=== PATIENT | male | born 1985 ===

== ENCOUNTER 2019-08-27 11:19 | Emergency (ER) | payer BC ==
[2019-08-27 12:27] VITALS: BP 135/84
[2019-08-27] MEDS ORDERED: Ibuprofen TAB* 600 MG PO ONE (12:30)
[2019-08-27 12:49] LABS: Influenza A Molecular NEGATIVE (Negative); Influenza B Molecular NEGATIVE (Negative)
--- NOTE | 2019-08-27 13:11 | UC ---
FLU HPI - HPI Summary HPI Summary: 34-year-old male who had a sudden onset of fever, chills, body aches and cough on Friday of this week. He has also been traveling this week and states that his backache is more from traveling he thinks however when he coughs he does have some mid back pain. He states in the beginning he has had a productive cough the first day of illness however he has not tried to cough because it hurts when he coughs. - History of Current Complaint Chief Complaint: UCRespiratory Stated Complaint: COUGH Time Seen by Provider: 08/27/19 13:09 Hx Obtained From: Patient Onset/Duration: Sudden Onset Severity Currently: Moderate Severity Initially: Moderate Pain Intensity: 9 Associated Signs & Symptoms: Positive: Fever, Cough, Nasal Congestion - Allergy/Home Medications Allergies/Adverse Reactions: Allergies Allergy/AdvReac Type Severity Reaction Status Date / Time latex Allergy Rash Verified 08/27/19 12:28 Home Medications: Home Medications Cbd Oil 1 drop PO ONCE PRN 08/27/19 [History Confirmed 08/27/19] Dm/PE/Acetaminophen/Doxylamine [Vicks Dayquil-Nyquil Cold-Flu] 1 tab PO ONCE PRN 08/27/19 [History Confirmed 08/27/19] Ibuprofen [Advil] 400 mg PO ONCE PRN 08/27/19 [History Confirmed 08/27/19] PMH/Surg Hx/FS Hx/Imm Hx Previously Healthy: Yes - Surgical History Surgical History: Yes Surgery Procedure, Year, and Place: testicular torsion. cyst removal. hernia - Family History Known Family History: Positive: Non-Contributory - Social History Alcohol Use: Weekly Substance Use Type: Marijuana Smoking Status (MU): Light Every Day Tobacco Smoker Amount Used/How Often: occasionally 3 times a week Household Exposure Type: Cigarettes Review of Systems All Other Systems Reviewed And Are Negative: Yes Constitutional: Positive: Fever, Chills ENT: Positive: Nasal Discharge Respiratory: Positive: Cough - In the first day of the illness he states he had a productive cough but has now continued however he has not wanted to cough because he has midback pain when he coughs. Is Patient Immunocompromised?: No Physical Exam Appearance: Well-Appearing, No Pain Distress, Well-Nourished Vital Signs: Initial Vital Signs Temp 101.5 F 08/27/19 12:22 Pulse 97 08/27/19 12:22 Resp 18 08/27/19 12:22 BP 135/84 08/27/19 12:22 Pulse Ox 100 08/27/19 12:22 Vital Signs Reviewed: Yes Eyes: Positive: Conjunctiva Clear ENT: Positive: Pharynx normal, TMs normal, Uvula midline Neck: Positive: Supple, Nontender, No Lymphadenopathy Respiratory: Positive: Lungs clear, Normal breath sounds, No respiratory distress, No accessory muscle use Cardiovascular: Positive: RRR, No Murmur, Pulses Normal, Brisk Capillary Refill Musculoskeletal Exam: Normal Neurological Exam: Normal Psychological Exam: Normal Skin Exam: Normal Flu Course/Dx - Course Course Of Treatment: Rapid influenza test: Negative Chest x-ray: Patient first consented to a chest x-ray after he found out the zhang however then he came out of the room and stated he change his mind and does not want a chest x-ray. He was given ibuprofen here. He has been comfortable here. I believe this is a viral illness however I did urge the patient to get a chest x-ray he continued to refuse. He would prefer to go home and rest, take fluids, take Tylenol every 4 hours and Motrin every 8 hours and follow-up as needed if any worsening symptoms. I did advise him if he has worsening symptoms where he has difficulty breathing, he should go to the emergency room for further treatment. Patient is agreeable to this plan of action. - Differential Dx/Diagnosis Provider Diagnosis: Flu-like symptoms Discharge ED - Sign-Out/Discharge Documenting (check all that apply): Patient Departure All imaging exams completed and their final reports reviewed: No Studies - Discharge Plan Condition: Fair Disposition: HOME Patient Education Materials: Viral Syndrome (ED) Referrals: No Primary Care Phys,NOPCP [Primary Care Provider] - [facility] [Outside] Additional Instructions: Increase fluids, rest. You may take Tylenol every 4 hours and ibuprofen every 8 hours for fever. Definite follow-up in the emergency room if you have any worsening symptoms over the weekend. Follow-up with your primary care provider or [facility] on Friday or Friday if you have continued fever. - Billing Disposition and Condition Condition: FAIR Disposition: Home
== END 2019-08-27 13:41 | disposition home or self-care (01) ==
LOC: UCEAST 11:19
DX: R05 Cough (principal); R50.9 Fever, unspecified; R68.83 Chills (without fever); R52 Pain, unspecified; F17.210 Nicotine dependence, cigarettes, uncomplicated; Z91.040 Latex allergy status
CPT/HCPCS: 99202; A9270-GY; G0463